=== PATIENT | male | born 1930 | race Caucasian/White ===

== ENCOUNTER 2016-11-18 14:56 | Emergency (ER) | payer OTHER ==
[2016-11-18 15:12] VITALS: BP 109/50; PULSE 79; TEMP 98; BMI 29.0
== END 2016-11-18 17:37 | disposition left against medical advice (07) ==
LOC: JER 14:56
DX: Z53.21 Procedure and treatment not carried out due to patient leaving prior to being seen by health care provider (principal)
CPT/HCPCS: 99281-25